=== PATIENT | female | born 1985 | race Caucasian/White ===

== ENCOUNTER → 2017-03-16 | Outpatient (CLI) | payer OTHER ==
[~2017-03-16] MED LIST: IOHEXOL 350 MG/ML 100 ML (OMNIPAQUE 350) VIAL IV ONE; NS 100 ML (IVPB) BAG IV ONE
[2017-03-16 12:13] LABS: MEAN PLATELET VOLUME 11.5 FL (7.4-10.4); RED BLOOD COUNT 3.92 10^6/uL (4.35-5.85); RED CELL DISTRIBUTION WIDTH 11.6 % (10.0-14.5); WHITE BLOOD COUNT 5.3 10^3/uL (4.3-11.0)
[2017-03-16 12:31] LABS: ALANINE AMINOTRANSFERASE 20 U/L (0-55); ALBUMIN 3.7 GM/DL (3.2-4.5); ANION GAP 7 MMOL/L (5-14); ASPARTATE AMINO TRANSFERASE 16 U/L (5-34); BILIRUBIN,TOTAL 0.7 MG/DL (0.1-1.0); BLOOD UREA NITROGEN 8 MG/DL (7-18); BUN/CREATININE RATIO 11; CALCIUM 8.7 MG/DL (8.5-10.1); CARBON DIOXIDE 26 MMOL/L (21-32); CHLORIDE 105 MMOL/L (98-107); CREATININE SERUM 0.71 MG/DL (0.60-1.30); GFR ESTIMATED > 60; GLUCOSE 81 MG/DL (70-105); POTASSIUM 3.4 MMOL/L (3.6-5.0); SODIUM 138 MMOL/L (135-145); TOTAL PROTEIN 6.5 GM/DL (6.4-8.2)
--- NOTE | 2017-03-16 13:44 | Diagnostic Imaging Report ---
PROCEDURE: CT abdomen and pelvis with contrast. TECHNIQUE: Multiple contiguous axial images were obtained through the abdomen and pelvis after administration of intravenous contrast. INDICATION: Right lower quadrant pain. 100 mL of Omnipaque 350 was administered intravenously. FINDINGS: The lung bases appear clear. FINDINGS: The liver, gallbladder, pancreas and adrenal glands appear unremarkable. The spleen is 11.7 cm in length. The kidneys have symmetric enhancement and contrast excretion. There is no hydronephrosis. The abdominal aorta is normal in caliber. No periaortic significantly enlarged lymph nodes are seen. No significant free fluid or fluid collection in the abdomen or pelvis is seen. There is an enhancing nodule in the left side of the uterus, may relate to a fibroid. This measures 1.9 cm in size. The adnexa appear prominent on both sides, more on the left. This is presumably related to prominent ovarian follicles. There are small to moderate amounts of fecal material in the colon. The osseous structures appear grossly unremarkable. IMPRESSION: 1. There is a 1.9 cm enhancing nodule in the left side of the uterus. This may relate to a fibroid. Followup pelvic ultrasound is recommended. This could also evaluate slight prominence of the left adnexa which could relate to underlying prominent follicles. 2. The appendix appears normal. Dictated by: Dictated on workstation # [id number]
== END ==
LOC: RAD 11:55
PROVIDERS: ATTEND Nurse Practitioner Family
DX: N85.8 Other specified noninflammatory disorders of uterus (principal); R10.31 Right lower quadrant pain; R10.32 Left lower quadrant pain; R10.2 Pelvic and perineal pain
CPT/HCPCS: 36415; 74177; 80053; 84703; 85027

== ENCOUNTER → 2017-03-20 | Outpatient (CLI) | payer OTHER ==
[~2017-03-20] MED LIST changes: -IOHEXOL 350 MG/ML 100 ML (OMNIPAQUE 350) VIAL IV ONE; -NS 100 ML (IVPB) BAG IV ONE; +OXYC-202 PO
--- NOTE | 2017-03-20 19:49 | Diagnostic Imaging Report ---
INDICATION: Pelvic pain. Abnormal CT scan of the pelvis on 03/16/2017. FINDINGS: Uterus measures 6.8 x 5.2 x 4.6 cm. There is a 1.6 cm well-circumscribed solid mildly hypoechoic mass in the myometrium. This does not involve the endometrium. Endometrial stripe measures 11 mm. The right ovary is not demonstrated. Left ovary measures 4.8 x 1.9 x 2.3 cm. There is a complex cyst in the left ovary measuring 2.2 x 1.8 x 1.6 cm. There is normal blood flow to the left ovary. There is no free fluid. IMPRESSION: 1. Findings consistent with myometrial uterine fibroid measuring 1.6 cm. 2. Multiple follicular cysts in the left ovary with complex cyst measuring 2.2 cm likely representing hemorrhagic cyst. Dictated by: Dictated on workstation # [id number]
== END ==
LOC: RAD 17:13
PROVIDERS: ATTEND Nurse Practitioner Family
DX: N83.02 Follicular cyst of left ovary (principal)
CPT/HCPCS: 76830; 76856

== ENCOUNTER 2017-03-22 15:33 | Day surgery (SDC) | payer OTHER ==
[~2017-03-22] VITALS: Ht 165.1 cm; Wt 68.0 kg
[2017-03-22 15:22] VITALS: BP 120/76
[2017-03-22] MEDS ORDERED: D5 LR IV SOLUTION 1,000 ML IV SCH (15:34)
[2017-03-22] MEDS ORDERED: OXYC-202 PO (15:35)
[2017-03-22] MEDS ORDERED: BUP/EPI 0.5% 1:200,000 (MARCAINE) 10ML VIAL IJ ONE (15:35)
--- NOTE | 2017-03-22 15:38 | Progress Note-Pre Operative ---
Pre-Operative Progress Note H&P Reviewed The H&P was reviewed, patient examined and no changes noted. Date Seen by Provider: Mar 22, 2017 Time Seen by Provider: 15:38 Date H&P Reviewed: Mar 22, 2017 Time H&P Reviewed: 15:38 Pre-Operative Diagnosis: severe pelvic pain complex left adnexal mass LUIS ROMERO MD Mar 22, 2017 3:38 pm
--- NOTE | 2017-03-22 15:38 | Discharge Instructions ---
Discharge Instructions Discharge Medications New, Converted or Re-Newed RX: RX on Chart Patient Instructions Patient Instructions: as directed Return to The Hospital For: aas directed Activity & Diet Discharge Diet: No Restrictions Activity as Tolerated: Yes Orders-Post D/C & Referrals Follow Up Appt: Call to make follow up appt. for patient in 1 weeks for suture removal Activity: Rest for 24 hours, than as tolerated. Wound Care: May remove Band-Aid tomorrow. Replace as desired. Keep incisions clean and dry. Wash daily with soap and water. Diet: As tolerated-Clear Liquids only if nauseated. May shower or tub bathe as desired. No driving for 24 hours, no alcoholic beverages for 24 hours, and nothing per vagina (no tampons, douching, or intercourse) for 2 weeks. Patient to return to the clinic as soon as possible for: Temperature greater than 101F, Severe Pain, Foul discharge from incision or vagina, Excessive Bleeding (more than a period). LUIS ROMERO MD Mar 22, 2017 3:37 pm
--- NOTE | 2017-03-22 15:39 | Progress Note-Post Operative ---
Post-Operative Progess Note Surgeon (s)/Tunneller (s) Surgeon LUIS ROMERO MD Tunneller: Mari tolentino Pre-Operative Diagnosis severe pelvic pain complex left adnexal mass Post-Operative Diagnosis same with ruptured hemorrhagic corpus luteal cyst of the left ovary, extensive pelvic adhesions, likely appendicitis, Procedure & Operative Findings Date of Procedure 03/22/17 Procedure Performed/Findings DL XS with extensive adhesiolysis and partial left oophorectomy and laparoscopic appendectomy Anesthesia Type Gen. Estimated Blood Loss Estimated blood loss (mL): 100 mL Specimens/Packing Specimens Removed pelvic debris and cystic material and partial left oophorectomy and appendectomy Packing: none LUIS ROMERO MD Mar 22, 2017 15:39
[2017-03-22] MEDS ORDERED: DEXAMETHASONE 10 MG/ML (DECADRON) 1 ML VIAL ONE (15:43)
[2017-03-22] MEDS ORDERED: ONDANSETRON 4 MG/2 ML (SDV) Z0FRAN ONE ×3 (15:43→18:54)
[2017-03-22] MEDS ORDERED: LIDOCAINE PF 2% 5 ML (XYLOCAINE) VIAL ONE (15:43)
[2017-03-22] MEDS ORDERED: SEVOFLURANE (ULTANE) 15 ML INHAL SOLN ONE ×6 (15:43→17:18)
[2017-03-22] MEDS ORDERED: MIDAZOLAM 2 MG/2 ML (VERSED) VIAL ONE (15:43)
[2017-03-22] MEDS ORDERED: proPOfol 200 MG/20 ML (DIPRIVAN) VIAL IV ONE (15:43)
[2017-03-22] MEDS ORDERED: fentaNYL INJECTION 100 MCG/2 ML AMP ONE (15:43)
[2017-03-22] MEDS ORDERED: ESTROGENS CONJ IV 25 MG/5 ML (PREMARIN) VIAL IVP NR (15:45)
[2017-03-22] MEDS ORDERED: KETOROLAC 30 MG/ML VIAL IVP ONE (15:45)
[2017-03-22] MEDS ORDERED: ONDANSETRON 4 MG/2 ML (SDV) Z0FRAN IVP PRN ×2 (15:45→17:45)
[2017-03-22] MEDS ORDERED: PROMETHAZINE INJ 25 MG/ML (PHENERGAN) AMP IM ONE (15:45)
[2017-03-22] MEDS ORDERED: MEPERIDINE (DEMEROL) INJ 100 MG/ML IM ONE (15:45)
[2017-03-22] MEDS ORDERED: oxyCODONE/APAP 10/325MG (PERCOCET 10) TABLET PO PRN (15:45)
[2017-03-22] MEDS: LACTATED RINGERS 1,000 ML IV PRN ×2 (15:45→17:33)
[2017-03-22] MEDS ORDERED: SUCCINYLCHOLINE INJ 100 MG/5 ML SYR ONE (15:48)
[2017-03-22] MEDS ORDERED: NS (IVPB) 50 ML ONE (15:54)
[2017-03-22] MEDS ORDERED: ceFAZolin 1,000 MG (ANCEF) VIAL ONE (15:54)
[2017-03-22] MEDS ORDERED: ceFAZolin 1 GM/NS 50 ML IVPB IV ONE ×2 (16:15)
[2017-03-22] MEDS ORDERED: WATER (STERILE) FOR INJECTION 10 ML ONE (16:46)
[2017-03-22] MEDS ORDERED: ROCURONIUM 50 MG/5 ML (ZEMURON) VIAL IV ONE (17:02)
[2017-03-22] MEDS ORDERED: NEOSTIGMINE (BLOXIVERZ ) 1 MG/1ML 10 ML VIAL ONE (17:06)
[2017-03-22] MEDS ORDERED: GLYCOPYRROLATE 0.2 MG/ML (ROBINUL) 2 ML VIAL ONE (17:06)
[2017-03-22] MEDS ORDERED: MEPERIDINE (DEMEROL) INJ 50 MG/ML ONE (17:31)
[2017-03-22] MEDS: MEPERIDINE (DEMEROL) INJ 50 MG/ML IVP PRN ×2 (17:33→17:43)
[2017-03-22] MEDS ORDERED: morphine INJ 10 MG/ML 1ML (SYR OR VIAL) IVP PRN (17:45)
[2017-03-22] MEDS ORDERED: PROMETHAZINE INJ 25 MG/ML (PHENERGAN) AMP ONE (17:49)
[2017-03-22] MEDS ORDERED: PROMETHAZINE INJ 25 MG/ML (PHENERGAN) AMP IVP PRN ×2 (18:00→18:15)
[2017-03-22 18:20] VITALS: BP 118/80
[2017-03-22] MEDS ORDERED: oxyCODONE/APAP 5/325MG (PERCOCET 5) TABLET ONE (18:36)
[2017-03-22] MEDS ORDERED: oxyCODONE/APAP 10/325MG (PERCOCET 10) TABLET PO ONE (18:39)
[2017-03-22 18:50] VITALS: BP 114/84
--- NOTE | 2017-03-23 01:07 | OPERATIVE REPORT ---
DATE OF SERVICE: 03/22/2017 PREOPERATIVE DIAGNOSES: Severe pelvic pain with left adnexal complex mass. POSTOPERATIVE DIAGNOSES: Severe pelvic pain with left adnexal complex mass with ruptured hemorrhagic corpus luteal cyst, pelvic adhesions and inflamed appendix. OPERATIVE PROCEDURE: Laparoscopic partial left oophorectomy, adhesiolysis, removal of blood clot and debris from the pelvis and laparoscopic appendectomy. OPERATIVE DESCRIPTION: With the patient in supine position, under satisfactory general anesthesia, she is repositioned in dorsal lithotomy position in the Octavio stirrups and prepped and draped in the usual fashion for abdominal and vaginal surgery. Urinary bladder was drained with a straight catheter. A weighted speculum placed in the posterior fornix of the vagina, cervix exposed and grasped anteriorly with single tooth tenaculum. Uterus was sounded to 9 cm with uterine sound. The cervix was dilated to accommodate a uterine manipulator, which was placed and the bulb filled 4 mL of air. The tenaculum and speculum were removed. The patient was brought in low dorsal lithotomy position. A 5 mm incision made in the patient's left upper quadrant. A 12 mm incision in the base of the umbilicus and 5 mm incision on the patient's previous low transverse incisional scar. All port sites had been infiltrated with 0.25% Marcaine with epinephrine prior to incision. Veress needle was placed through the umbilical incision. Correct placement confirmed with a water drop test. The abdomen was insufflated with 2.4 liters of carbon dioxide, then the Veress needle was removed and a 5 mm Optiview laparoscopic port placed in the left upper quadrant incision. The patient was placed in Trendelenburg. The abdominal wall was transilluminated and a 12 mm port was placed through the umbilical incision and a 5 mm port through the suprapubic incision. The pelvis was examined. The uterus was somewhat mottled in appearance, and showed evidence of small fibroids on the surface and some peritoneal cyst on the surface of the uterus. There was blood in the pelvis as uterus elevated. It was clear that there were adhesions, inflammatory exudate and blood clot and debris in the pelvis, there was a large ruptured what appeared to be a hemorrhagic corpus luteal cyst on the left ovary. The right ovary was densely adherent to the ovarian fossa, running attached over the site where the ureter runs. The right fallopian tube was partially surgically absent consistent with the patient's history of having had an ectopic on the right. Laparoscope was rotated. The appendix was identified. It was distorted and indurated, injected, appendix consistent with some degree of appendicitis. The sigmoid was densely adherent to the left pelvic brim, obstructing access to the left tube and ovary and to the IP ligament. Adhesiolysis was first undertaken to free the right ovary from its adhesions and then the peritoneal cystic debris and blood clot was evacuated from that area. It did appear that there was endometriosis in the ovarian fossa on the right. Attention was then turned to the sigmoid adhesions, where were freed allowing the sigmoid to fall away from the pelvic brim and allow access to the left tube and ovary. The left ureter seemed to peristaltic. The ovary had a large complex mass involving the medial pole. This mass was removed by resecting that portion of the ovary. Over 90% of the ovary remained, there was some bleeding from the area where it was resected. This was controlled with cautery. Hemostasis was complete on completion of this portion of the procedure. The tissue removed was sent to pathology for permanent section as labeled as partial left oophorectomy. The fibrinous debris, blood and clot filling the pelvis was gently dissected free as it was fairly adherent to the cul-de-sac. The bulk of this was freed and removed. There was no bleeding in the pelvis. There was no bleeding now from the left ovary or from the right. With the abnormal pathology in the pelvis dealt with, the attention was turned to the appendix. The appendix was grasped and elevated. The mesoappendix was divided with electrocautery over to the base of the appendix. Prior to doing that, the appendix was fairly densely adherent to the pelvic brim. These adhesions were in areas very light thin frame, in another areas very dense and fibrotic adhesions were taken down to free the ovary completely and then with the mesoappendix divided to the base of the appendix and Endo-BRITTNEY was placed across the base of the mesoappendix and fired, severing that organ from its attachment. It was placed in an Endobag and brought out through the umbilical port. The stump of the appendix copiously irrigated and treated with several drops of Betadine solution. The pelvis and all of the operative sites were irrigated again, the irrigant aspirated out with no remaining abnormal pathology. Hemostasis assured and the procedure was terminated. The operative instruments were removed under direct vision as were the ports. The patient was brought out of Trendelenburg. The insufflating gas was evacuated in the process of removing the ports. The skin incisions were closed with interrupted sutures of 3-0 nylon. The fascia at the infraumbilical incision was closed with [id number] suture of 2-0 Vicryl. The uterine manipulator bulb was drained. The instruments were removed from the uterus and from the vagina. Speculum was replaced in the vagina. The cervix examined for hemostasis, which was complete. The patient was now uneventfully awakened from her general anesthesia and transferred to recovery room in stable condition. Sponge and needle counts were correct at the end of the procedure. Estimated blood loss was around 100 mL. The patient had tolerated the procedure well. Job ID: [id number] DocumentID: [id number] Dictated Date: 03/22/2017 17:47:41 Appliance Painter And Refinisher Date: 03/23/2017 01:06:58 Dictated By: LUIS ROMERO MD
== END 2017-03-22 19:50 | disposition home or self-care (01) ==
LOC: SDC 15:33
PROVIDERS: ATTEND Obstetrics & Gynecology
DX: R10.2 Pelvic and perineal pain (principal); N83.12 Corpus luteum cyst of left ovary; N73.6 Female pelvic peritoneal adhesions (postinfective); K37 Unspecified appendicitis; K66.8 Other specified disorders of peritoneum
CPT/HCPCS: 88112; 88304; 88305; 88307

== ENCOUNTER → 2018-12-28 | Outpatient (CLI) | payer OTHER ==
[~2018-12-28] MED LIST changes: -OXYC-202 PO; +OXYC1TAB12 PO
--- NOTE | 2018-12-28 08:52 | Diagnostic Imaging Report ---
CLINICAL INDICATION: Patient with right upper quadrant pain. EXAM: Right upper quadrant ultrasound. COMPARISON: CT scan of the abdomen and pelvis performed with contrast dated 03/16/2017. FINDINGS: The pancreas has normal echogenicity and echotexture. The liver has normal echogenicity and echotexture. The liver surface is smooth. The liver measures 14.1 cm. There is no liver mass. The main portal vein demonstrates hepatopedal flow. There is no intrahepatic or extrahepatic ductal dilation. Common bile duct measures 3 mm. The gallbladder is fluid-filled with no stones or sludge. There is no gallbladder wall thickening or pericholecystic fluid. There is no sonographic Breaux's sign. The kidney has normal size, shape, and echogenicity with no hydronephrosis or mass. The right kidney measures 10.3 cm in craniocaudal dimension. There is no abdominal ascites. The visualized portion of the abdominal aorta and IVC are unremarkable. IMPRESSION: Unremarkable right upper quadrant ultrasound. Dictated by: Dictated on workstation # [id number]
== END ==
LOC: RAD 07:54
PROVIDERS: ATTEND Nurse Practitioner Family
DX: R10.11 Right upper quadrant pain (principal)
CPT/HCPCS: 76705

== ENCOUNTER → 2019-09-16 | Outpatient (CLI) | payer OTHER | LOC: LABNPT 14:39 | PROVIDERS: ATTEND Family Medicine | DX: Z11.59 Encounter for screening for other viral diseases (principal) | CPT/HCPCS: 87635 ==

== ENCOUNTER → 2019-12-30 | Outpatient (CLI) | payer OTHER ==
[2019-12-30 08:18] LABS: BASOPHILS % (AUTO) 1 % (0-10); EOSINOPHILS # (AUTO) 0.3 10^3/uL (0.0-0.3); EOSINOPHILS % (AUTO) 6 % (0-10); HEMATOCRIT 39 % (35-52); HEMOGLOBIN 13.1 G/DL (11.5-16.0); LYMPHOCYTES # (AUTO) 1.7 X 10^3 (1.0-4.0); LYMPHOCYTES % (AUTO) 28 % (12-44); MEAN CORPUSCULAR HEMOGLOBIN 31 PG (25-34); MEAN CORPUSCULAR HGB CONC 33 G/DL (32-36); MEAN CORPUSCULAR VOLUME 92 FL (80-99); MEAN PLATELET VOLUME 11.1 FL (7.4-10.4); MONOCYTES # (AUTO) 0.3 X 10^3 (0.0-1.0); MONOCYTES % (AUTO) 6 % (0-12); NEUTROPHILS # (AUTO) 3.7 X 10^3 (1.8-7.8); NEUTROPHILS % (AUTO) 61 % (42-75); PLATELET COUNT 204 10^3/uL (130-400); WHITE BLOOD COUNT 6.1 10^3/uL (4.3-11.0)
[2019-12-30 08:41] LABS: ALANINE AMINOTRANSFERASE 15 U/L (0-55); ALBUMIN 3.9 GM/DL (3.2-4.5); ALKALINE PHOSPHATASE 34 U/L (40-136); BILIRUBIN,TOTAL 0.4 MG/DL (0.1-1.0); BUN/CREATININE RATIO 12; CALCIUM 8.5 MG/DL (8.5-10.1); CARBON DIOXIDE 25 MMOL/L (21-32); CHLORIDE 107 MMOL/L (98-107); CHOLESTEROL 142 MG/DL (< 200); CREATININE SERUM 0.74 MG/DL (0.60-1.30); GFR ESTIMATED > 60; GLUCOSE 91 MG/DL (70-105); HDL CHOLESTEROL 52 MG/DL (40-60); SODIUM 138 MMOL/L (135-145); TOTAL PROTEIN 6.5 GM/DL (6.4-8.2); TRIGLYCERIDES 97 MG/DL (<150); VLDL CHOLESTEROL 19 MG/DL (5-40)
[2019-12-30 08:48] LABS: ERYTHROCYTE SEDIMENTATION RATE 5 MM/HR (0-20)
== END ==
LOC: LAB 07:59
PROVIDERS: ATTEND Nurse Practitioner Family
DX: Z00.00 Encounter for general adult medical examination without abnormal findings (principal); M25.50 Pain in unspecified joint; R53.83 Other fatigue
CPT/HCPCS: 36415; 80053; 80061; 82306; 84443; 85025; 85652; 86141; 86618; 86666; 86668; 86757

== ENCOUNTER → 2020-01-22 | Outpatient (CLI) | payer OTHER ==
--- NOTE | 2020-01-22 16:15 | Diagnostic Imaging Report ---
INDICATION: Left upper quadrant pain with Covid positive. Fever. TECHNIQUE: Multiple real time maldonado scale sonographic images were obtained of the left upper quadrant of the abdomen. CORRELATION STUDY: None FINDINGS: Spleen size normal at 9.3 x 4.1 x 3.8 cm. Left kidney 12.6 x 4.8 x 4.6 cm and unremarkable. No left upper quadrant fluid collection. IMPRESSION: 1.Normal sized spleen. Dictated by: Dictated on workstation # [id number]
== END ==
LOC: RAD 15:36
PROVIDERS: ATTEND Nurse Practitioner Family
DX: U07.1 COVID-19 (principal); B27.89 Other infectious mononucleosis with other complication; M79.18 Myalgia, other site; R10.12 Left upper quadrant pain
CPT/HCPCS: 76705